=== PATIENT | female | born 1970 | race Caucasian/White ===

== ENCOUNTER 2020-11-15 16:18 | Emergency (ER) | payer MEDICAID ==
[~2020-11-15] VITALS: Ht 154.9 cm; Wt 87.1 kg
[2020-11-15 16:32] VITALS: BP 144/93
--- NOTE | 2020-11-15 16:35 | NUR ---
Patient ambulated to bed 11. RN evaluating the patient at bedside.
--- NOTE | 2020-11-15 16:40 | NUR ---
50 y/o F brought in by daughter with c/c left rib pain. Patient presents A&Ox4, ambulatory, Turkish speaking and reports acute onset of left rib pain/swelling 5 days ago. Patient reports the pain hasn't gotten any better and wanted evaluation. Reports pain 6/10, pressure/constant, radiating to her LLQ and left lower back. Pt states "it feels more swollen compared to my right side." Patient denies any recent trauma/falls/injuries, N/V/D, fever/chills, chest pain, dizziness, headache, vision changes, cough. Pt states 2 doses Pfizer of Covid vaccinations. Pt placed into gown. alarm security or surveillance monitor in place. Bed locked in lowest position, side rails x 1, call light in reach. PMH/Meds: Johnny Bowers: 2012
--- NOTE | 2020-11-15 16:42 | NUR ---
Patient ambulated to restroom for urine collection.
--- NOTE | 2020-11-15 16:45 | NUR ---
Urine sample collected
--- NOTE | 2020-11-15 17:29 | NUR ---
Patient resting in position of comfort. Daughter remains at bedside. school lunch monitor in place. Bed locked in lowest position, side rails x 1, call light in reach.
--- NOTE | 2020-11-15 17:30 | NUR ---
MATTHEW Kimble is evaluating patient at bedside.
--- NOTE | 2020-11-15 17:41 | NUR ---
MATTHEW Kimble is evaluating patient at bedside with Ultrasound.
--- NOTE | 2020-11-15 17:45 | NUR ---
Dr. Fritz at bedside with MATTHEW Kimble for Ultrasound
[2020-11-15] MEDS ORDERED: IBUP-1842 PO (17:53)
[2020-11-15 18:00] VITALS: BP 135/50
== END 2020-11-15 18:00 | disposition home or self-care (01) ==
LOC: MED 16:18
DX: D17.1 Benign lipomatous neoplasm of skin and subcutaneous tissue of trunk (principal)
CPT/HCPCS: 81002; 99284

== ENCOUNTER 2021-01-01 16:26 | Emergency (ER) | payer MEDICAID ==
[~2021-01-01] VITALS: Ht 157.5 cm; Wt 83.9 kg
[~2021-01-01 16:26] MED LIST: IBUP-1842 PO
[2021-01-01 16:44] VITALS: BP 90/59
[2021-01-01] MEDS ORDERED: KETOROLAC 30 MG/ML VIAL IM ONE (17:00)
[2021-01-01] MEDS ORDERED: BACITRACIN OINT 500 UNITS/GM PKT TP ONE (17:20)
[2021-01-01] MEDS ORDERED: IBUP-2213 PO (17:37)
--- NOTE | 2021-01-01 17:48 | NUR ---
Patient transferred to bed 8 via wheelchair by tech. RN evaluating the patient at bedside.
--- NOTE | 2021-01-01 17:55 | NUR ---
50 y/o F BIB daughter with c/c fall. Patient A&Ox4, ambulatory with assistance, states she fell walking on the sidewalk. Patient presents with Right knee abrasion, Left ankle swelling, right anterior moon hematoma. Patient reports pain to left ankle, reports swelling and pain 9/10, throbbing/constant, non-radiating pain. Patient denies any medications prior to arrival. Patient denies LOC, head/neck/back trauma, N/V/D, fever/chills, abdominal, back pain. Bed locked in lowest position, side rails x1, call light in reach. PMH: HTN, DM Meds: Metformin, lisinopril Sx: C-sections NKA
--- NOTE | 2021-01-01 17:55 | NUR ---
EMT at bedside for wound care, destini wrap and splint care.
--- NOTE | 2021-01-01 18:07 | NUR ---
PT LEFT ANKLE WRAPPED WITH 3" SEBASTIAN WRAP, CMS WNL BEFORE AND AFTER. PT LEFT WRIST PLACED IN FABRICATED THUMB SPICA MADE OF 4" ORTHO-GLASS AND WRAPPED WITH 3" SEBASTIAN WRAPS X2 CMS WNL BEFORE AND AFTER, PT ALSO PLACED IN LEFT SLING, PT WOUND ON RIGHT KNEE CLEANED AND IRRIGATED WITH NORMAL SALINE AND BACITRACIN WAS APPLIED TO PTS WOUND AND DRESSED WITH 3 BANDAIDS. RN NOTIFIED
--- NOTE | 2021-01-01 18:07 | NUR ---
EMT at bedside for splint, destini wrap, and wound care.
[2021-01-01 18:15] VITALS: BP 98/62
--- NOTE | 2021-01-01 18:15 | NUR ---
Patient discharged with v/s stable. Written and verbal after care instructions given and explained. Patient alert, oriented and verbalized understanding of instructions. Wheel Chair Assisted with by caregiver. All questions addressed prior to discharge. ID band removed. Patient advised to follow up with PMD. Rx of Ibuprofen given. Patient educated on indication of medication including possible reaction and side effects. Opportunity to ask questions provided and answered.
== END 2021-01-01 18:15 | disposition home or self-care (01) ==
LOC: MED 16:26
DX: S62.002A Unspecified fracture of navicular [scaphoid] bone of left wrist, initial encounter for closed fracture (principal); S93.402A Sprain of unspecified ligament of left ankle, initial encounter; E11.9 Type 2 diabetes mellitus without complications; I10 Essential (primary) hypertension; Z79.899 Other long term (current) drug therapy; Z98.890 Other specified postprocedural states; W19.XXXA Unspecified fall, initial encounter; Y93.01 Activity, walking, marching and hiking; Y92.89 Other specified places as the place of occurrence of the external cause; Y99.8 Other external cause status
CPT/HCPCS: 29125; 73110; 73130; 73610; 96372; 99284; J1885

== ENCOUNTER 2022-01-15 10:17 | Emergency (ER) | payer MEDICAID ==
[~2022-01-15] VITALS: Ht 154.9 cm; Wt 89.4 kg
[~2022-01-15 10:17] MED LIST changes: +IBUP-2213 PO
[2022-01-15 10:30] VITALS: BP 132/77
--- NOTE | 2022-01-15 10:30 | NUR ---
51 Y/O FEMALE C/O PAIN IN LOWER BACK X2DAYS, "PUNCHING" DENIES ANY URINARY SYMPTOMS, DENIES ANY INJURY/TRAUMA NKA PMH: HTN, DM
--- NOTE | 2022-01-15 10:47 | NUR ---
DR NASH AT PT SIDE FOR EVAL
[2022-01-15] MEDS ORDERED: CARI350T PO (10:52)
[2022-01-15] MEDS ORDERED: TRAM50TA1 PO (10:52)
[2022-01-15] MEDS ORDERED: NAPR-1704 PO (10:52)
--- NOTE | 2022-01-15 10:55 | NUR ---
Patient discharged with v/s stable. Written and verbal after care instructions given and explained. Patient alert, oriented and verbalized understanding of instructions. Ambulatory with steady gait. All questions addressed prior to discharge. ID band removed. Patient advised to follow up with PMD. Rx of SOMA, NAPROXEN, ULTRAM given. Patient educated on indication of medication including possible reaction and side effects. Opportunity to ask questions provided and answered.
== END 2022-01-15 10:55 | disposition home or self-care (01) ==
LOC: MED 10:17
DX: M54.50 Low back pain, unspecified (principal); I10 Essential (primary) hypertension; E11.9 Type 2 diabetes mellitus without complications; Z79.4 Long term (current) use of insulin; Z79.899 Other long term (current) drug therapy
CPT/HCPCS: 99283

== ENCOUNTER 2024-01-19 08:50 | Emergency (ER) | payer MEDICAID ==
[~2024-01-19] VITALS: Ht 160 cm; Wt 81.0 kg
[~2024-01-19 08:50] MED LIST changes: +CARI350T PO; +NAPR-1704 PO; +TRAM-748 PO
[2024-01-19 08:53] VITALS: BP 147/75; PULSE 75; RESP 19; TEMP 97.8; O2SAT 99
[2024-01-19 09:46] VITALS: BP 147/75; PULSE 75; RESP 19; TEMP 97.8; O2SAT 99
== END 2024-01-19 09:46 | disposition home or self-care (01) ==
LOC: MED 08:50
DX: S60.222A Contusion of left hand, initial encounter (principal); E11.9 Type 2 diabetes mellitus without complications; I10 Essential (primary) hypertension; Z79.1 Long term (current) use of non-steroidal anti-inflammatories (NSAID); Z79.899 Other long term (current) drug therapy; X58.XXXA Exposure to other specified factors, initial encounter; Y93.89 Activity, other specified; Y92.89 Other specified places as the place of occurrence of the external cause; Y99.8 Other external cause status
CPT/HCPCS: 73130; 99283